=== PATIENT | female | born 1955 | race Two or more races ===

== ENCOUNTER 2021-06-29 12:30 | Inpatient (IN) | payer OTHER ==
[~2021-06-29] VITALS: Ht 154.9 cm; Wt 53.5 kg
[~2021-06-29 12:30] MED LIST: JANUMET 50-5001 EACH PO; PROTONIX40 MG PO
[2021-06-29] MEDS ORDERED: LYNPARZA150 MG PO (15:25)
[2021-06-29] MEDS ORDERED: CRESTOR20 MG PO (15:25)
[2021-06-29] MEDS ORDERED: FOLIC ACID0.8 M1 PO (15:26)
[2021-06-29] MEDS ORDERED: PLAVIX75 MG PO (15:26)
[2021-06-29] MEDS ORDERED: VITAMIN C500 M6 PO (15:26)
[2021-06-29] MEDS ORDERED: ADULT LOW DOSE81 M1 PO (15:26)
[2021-07-01] MEDS ORDERED: FOLIC ACID1 MG (13:33)
[2021-07-01] MEDS ORDERED: CILOSTAZOL100 MG (13:33)
== END 2021-07-02 10:57 | disposition home or self-care (01) | DRG 824 ==
LOC: O/R 07-01 07:33 → OB/GYN 07-01 07:33
PROVIDERS: ADMIT Obstetrics & Gynecology Gynecologic Oncology; ATTEND Obstetrics & Gynecology Gynecologic Oncology
PROC: 07BH0ZX Excision of Right Inguinal Lymphatic, Open Approach, Diagnostic (ICD-10-PCS; 2021-07-01)
PROC: 07BJ0ZX Excision of Left Inguinal Lymphatic, Open Approach, Diagnostic (ICD-10-PCS; principal; 2021-07-01 10:30)
DX: C77.4 Secondary and unspecified malignant neoplasm of inguinal and lower limb lymph nodes (principal); C56.3 Malignant neoplasm of bilateral ovaries

== ENCOUNTER 2023-05-05 13:52 | Emergency (ER) | payer OTHER ==
[~2023-05-05] VITALS: Ht 154.9 cm; Wt 49.9 kg
[~2023-05-05 13:52] MED LIST changes: +ADULT LOW DOSE81 M1 PO; +CILOSTAZOL100 MG; +CRESTOR20 MG PO; +FOLIC ACID0.8 M1 PO; +FOLIC ACID1 MG; +LYNPARZA150 MG PO; +PLAVIX75 MG PO; +VITAMIN C500 M6 PO
[2023-05-05] MEDS ORDERED: [UNRECOGNIZED DRUG - OTHER] (14:20)
[2023-05-05] MEDS ORDERED: JANUMET 50-1,01 EACH PO (14:21)
== END 2023-05-05 18:16 | disposition home or self-care (01) ==
LOC: ER 13:52
DX: U07.1 COVID-19 (principal)

== ENCOUNTER 2023-09-11 14:43 | Emergency (ER) | payer OTHER ==
[~2023-09-11] VITALS: Ht 152.4 cm; Wt 47.6 kg
[~2023-09-11 14:43] MED LIST changes: +JANUMET 50-1,01 EACH PO; +[UNRECOGNIZED DRUG - OTHER]
[2023-09-11] MEDS ORDERED: JANUMET XR 50-1 EACH PO (16:22)
== END 2023-09-12 03:31 | disposition home or self-care (01) ==
LOC: ER 14:44
DX: M12.832 Other specific arthropathies, not elsewhere classified, left wrist (principal); E11.9 Type 2 diabetes mellitus without complications; Z79.84 Long term (current) use of oral hypoglycemic drugs; Z85.43 Personal history of malignant neoplasm of ovary
CPT/HCPCS: 73100; 96372; 99284; J1885